=== PATIENT | male | born 1995 | race Hispanic/Latino ===

== ENCOUNTER → 2023-09-25 | Emergency (ER) | payer OTHER ==
[~2023-09-25] MED LIST: AMOX/K CLAV 875 MG TAB ONE; IBUPROFEN 200 MG TAB PO ONE; IBUPROFEN 400 MG TAB ONE
[2023-09-25 01:49] LABS: Protime INR 0.95
[2023-09-25 01:53] LABS: Absolute Eosinophils 0.1 K/uL (0-0.5); Absolute Lymphocytes (CBC) 2.2 K/uL (0.7-4.9); Basophils % 0.5 % (0-1.3); Eosinophils % 2.1 % (0-4.4); Hematocrit 39.9 % (39.6-49.0); Hemoglobin 13.5 g/dL (13.6-17.9); Lymphocytes % 30.6 % (15.3-44.8); MCV 90.1 fL (80-100); MPV 9.8 fL (7.6-11.3); Platelets 217 thou/uL (152-406); RBC Red Blood Cell Count 4.44 M/uL (4.33-5.43)
[2023-09-25 02:08] LABS: ALT/SGPT 21 U/L (16-61); AST/SGOT 17 U/L (15-37); Albumin 3.7 g/dL (3.4-5.0); Albumin/Globulin Ratio 1.2 (1.1-1.8); Alkaline Phosphatase 84 U/L (45-117); Anion Gap 6.9 mEq/L (5.0-15.0); BUN Blood Urea Nitrogen 14 mg/dL (7-18); Bicarbonate 31 mEq/L (21-32); Bilirubin Direct 0.1 mg/dL (0-0.2); Bilirubin Indirect, Calculated 0.1 mg/dL (0.2-0.8); Bilirubin Total 0.2 mg/dL (0.2-1.0); Globulin 3.2 g/dL (2.3-3.5); Glomerular Filtration Rate 64 ml/min (=/>90); Glucose Level 79 mg/dL (74-106); Potassium 3.9 mEq/L (3.5-5.1); Protein, Total 6.9 g/dL (6.4-8.2); Sodium Level 142 mEq/L (136-145)
[2023-09-25 03:49] LABS: Barbiturates NEGATIVE (NEGATIVE); Benzodiazepines NEGATIVE (NEGATIVE); Cocaine NEGATIVE (NEGATIVE); METHAMPHETAM POSITIVE (NEGATIVE); Methadone NEGATIVE (NEGATIVE); Opiates NEGATIVE (NEGATIVE); Phencyclidine NEGATIVE (NEGATIVE); THC Cannibis POSITIVE (NEGATIVE)
--- NOTE | 2023-09-25 04:12 | ER ---
Nurse's Notes [facility] Name: Maged Naik Jr Age: 28 yrs Sex: Male : 1995 Arrival Date: 09/25/2023 Time: 01:06 Bed 3 Private MD: Diagnosis: Dental pain;Amphetamine abuse;Cannabis abuse Presentation: 09/24 01:10 Chief complaint: EMS states: toned out for possible seizure; EMS found him km8 unresponsive, IV was started then pt was talking to him; white power found in pt's pocket and given to PD. Coronavirus screen: Client denies travel out of the [place] in the last 14 days. Ebola Screen: No symptoms or risks identified at this time. Initial Sepsis Screen: Does the patient meet any 2 criteria? HR > 90 bpm. Does the patient have a suspected source of infection? No. Patient's initial sepsis screen is negative. Risk Assessment: Do you want to hurt yourself or someone else? Patient reports no desire to harm self or others. Onset of symptoms was September 25, 2023. 01:10 Method Of Arrival: EMS: [facility] km8 01:10 Acuity: JOE 2 km8 01:10 Care prior to arrival: IV initiated. 18 GA, in the left antecubital area, Glucose km8 check: 77. Triage Assessment: 01:10 General: Appears in no apparent distress. comfortable, Behavior is calm, cooperative, km8 drowsy. Pain: Denies pain. EENT: No deficits noted. Neuro: Level of Consciousness is awake, alert, obeys commands, Oriented to person, place, time, situation. Cardiovascular: Denies chest pain, shortness of breath, Patient's skin is warm and dry. Respiratory: Airway is patent Respiratory effort is even, unlabored, Respiratory pattern is regular, symmetrical. GI: No signs and/or symptoms were reported involving the gastrointestinal system. : No signs and/or symptoms were reported regarding the genitourinary system. Derm: No signs and/or symptoms reported regarding the dermatologic system. Skin is intact, is healthy with good turgor, Skin is dry, Skin is pink, warm \T\ dry. normal, Skin temperature is warm. Musculoskeletal: No signs and/or symptoms reported regarding the musculoskeletal system. Range of motion: intact in all extremities. Historical: - Allergies: : No Known Allergies; km8 - Home Meds: : Unable to obtain [Active]; km8 - PMHx: : Unable to Obtain; km8 - PSHx: : Unable to Obtain; km8 - Immunization history:: Adult Immunizations unknown. - Social history:: Smoking status: unknown. Screenin:10 [facility] ED Fall Risk Assessment (Adult) History of falling in the last 3 months, km8 including since admission No falls in past 3 months (0 pts) Confusion or Disorientation Yes (5 pts) Intoxicated or Sedated Yes (3 pts) Impaired Gait No (0 pts) Mobility Assist Device Used No (0 pt) Altered Elimination No (0 pt) Score/Fall Risk Level 3 or more points = High Risk Oriented to surroundings, Maintained a safe environment, Educated pt \T\ family on fall prevention, incl call for assistance when getting out of bed, Assessed \T\ reinforced patient's understanding of fall precautions, Provided non-skid footwear, Hourly rounding (assess needs \T\ fall precautionary measures) done, Used ambulatory aids as needed (educated on \T\ assisted with), Implemented a Fall Risk Plan of Care, Remained w/in arm's length of patient and in sight while toileting, Remained with patient while ambulating. Abuse screen: Denies threats or abuse. Denies injuries from another. Nutritional screening: No deficits noted. Tuberculosis screening: No symptoms or risk factors identified. Assessment: :10 Reassessment: see triage assessment/notes. km8 02:02 Reassessment: Patient appears in no apparent distress at this time. No changes from km8 previously documented assessment. 03:26 Reassessment: Patient appears in no apparent distress at this time. No changes from km8 previously documented assessment. Patient and/or family updated on plan of care and expected duration. Pain level reassessed. Patient is alert, oriented x 3, equal unlabored respirations, skin warm/dry/pink. 03:26 General: Appears in no apparent distress. comfortable, Behavior is calm, cooperative, km8 appropriate for age. Neuro: Level of Consciousness is awake, alert, obeys commands, Oriented to person, place, time. 04:09 Reassessment: Patient appears in no apparent distress at this time. No changes from km8 previously documented assessment. Patient and/or family updated on plan of care and expected duration. Pain level reassessed. Patient is alert, oriented x 3, equal unlabored respirations, skin warm/dry/pink. Vital Signs: 01:10 BP 133 / 77; Pulse 90; Resp 16; Temp 97.9(TE); Pulse Ox 100% on R/A; Pain 0/10; km8 01:30 BP 121 / 63; Pulse 89; Resp 16; Pulse Ox 100% on R/A; km8 02:00 BP 108 / 38; Pulse 106; Resp 16; Pulse Ox 99% on R/A; km8 02:30 BP 92 / 47; Pulse 101; Resp 16; Pulse Ox 100% on R/A; km8 03:00 BP 101 / 62; Pulse 101; Resp 16; Pulse Ox 99% on R/A; km8 03:30 BP 109 / 57; Pulse 100; Resp 16; Pulse Ox 99% on R/A; km8 01:10 Pain Scale: Adult km8 Lakia Coma Score: 01:10 Eye Response: to voice(3). Motor Response: obeys commands(6). Verbal Response: km8 oriented(5). Total: 14. ED Course: 01:09 Patient arrived in ED. km8 01:10 Syed Benz DO is Attending Physician. ms3 01:10 Patient maintains SpO2 saturation greater than 95% on room air. km8 01:10 Arm band placed on right wrist. km8 01:10 Patient has correct armband on for positive identification. Bed in low position. Call km8 light in reach. Side rails up X2. Pulse ox on. NIBP on. Warm blanket given. 01:12 Katerina Winters, RN is Primary Nurse. km8 01:15 Triage completed. km8 01:22 Initial lab(s) drawn, by nd, sent to lab. km8 01:28 EKG done, by ED staff, reviewed by Syed Benz DO. km8 03:25 Urine Drug Screen Sent. km8 03:25 Urine collected: clean catch specimen, clear. km8 04:09 Provided Education on: d/c teaching. km8 04:10 Linden Murray DDS is Referral Physician. ms3 04:10 Kareem South DO is Referral Physician. ms3 04:10 No provider procedures requiring assistance completed. km8 04:19 IV discontinued, intact, bleeding controlled, No redness/swelling at site. Pressure km8 dressing applied. Administered Medications: 04:18 Drug: Ibuprofen PO 600 mg PO once Route: PO; km8 04:18 Follow up: Response: Medication administered at discharge. km8 04:18 Drug: Amoxicillin PO 875 mg PO once Route: PO; km8 04:18 Follow up: Response: Medication administered at discharge. km8 Medication: 04:09 VIS not applicable for this client. km8 Outcome: 04:11 Discharge ordered by MD. ms3 04:19 Discharged to home ambulatory, km8 04:19 Condition: good 04:19 Discharge instructions given to patient, Instructed on discharge instructions, follow up and referral plans. medication usage, Demonstrated understanding of instructions, follow-up care, medications, Prescriptions given X 2, 04:21 Patient left the ED. km8 Signatures: Syed Benz DO DO ms3 Katerina Winters RN RN km8 Corrections: (The following items were deleted from the chart) 04:09 03:26 Reassessment: Patient appears in no apparent distress at this time. No changes km8 from previously documented assessment. Patient and/or family updated on plan of care and expected duration. Pain level reassessed. Patient is alert, oriented x 3, equal unlabored respirations, skin warm/dry/pink. km8
--- NOTE | 2023-09-25 04:12 | EDPHYS ---
Physician Documentation [facility] Name: Maged Naik Jr Age: 28 yrs Sex: Male : 1995 Arrival Date: 09/25/2023 Time: 01:06 Bed 3 Private MD: ED Physician Syed Benz HPI: 09/24 01:37 This 28 yrs old Male presents to ER via EMS with complaints of Possible Overdose. ms3 01:37 28-year-old male with unknown past medical history presents via [facility] for ms3 altered mental status. EMS states they returned down to an unresponsive patient. On their arrival patient was unresponsive with shallow breathing. EMS notes white crystals were found in patient's pocket. Per EMS patient was alert and oriented x 3. Patient is without complaint. Patient states he is tired. Historical: - Allergies: :23 No Known Allergies; km8 - Home Meds: :23 Unable to obtain [Active]; km8 - PMHx: : Unable to Obtain; km8 - PSHx: :23 Unable to Obtain; km8 - Immunization history:: Adult Immunizations unknown. - Social history:: Smoking status: unknown. ROS: 01:37 Constitutional: Negative for fever, and chills. Neck: Negative for injury, pain, and ms3 swelling, Cardiovascular: Negative for chest pain, and palpitations. Respiratory: Negative for shortness of breath, cough, wheezing, and pleuritic chest pain, Abdomen/GI: Negative for abdominal pain, nausea, vomiting, diarrhea, and constipation, MS/Extremity: Negative for injury and deformity, Skin: Negative for injury, rash, and discoloration, Exam: 01:37 Constitutional: This is a well developed, well nourished patient who is awake, alert, ms3 and in no acute distress. Head/Face: Normocephalic, atraumatic. Chest/axilla: Normal chest wall appearance and motion. Nontender with no deformity. Cardiovascular: Regular rate and rhythm with a normal S1 and S2. No gallops, murmurs, or rubs. Normal PMI, no JVD. No pulse deficits. Respiratory: Lungs have equal breath sounds bilaterally, clear to auscultation and percussion. No rales, rhonchi or wheezes noted. No increased work of breathing, no retractions or nasal flaring. Abdomen/GI: Soft, non-tender, with normal bowel sounds. No distension or tympany. No guarding or rebound. No evidence of tenderness throughout. Skin: Warm, dry with normal turgor. Normal color with no rashes, no lesions, and no evidence of cellulitis. MS/ Extremity: Pulses equal, no cyanosis. Neurovascular intact. Full, normal range of motion. 01:37 Neuro: Orientation: is normal, to person, place, time \T\ situation. Mentation: is ms3 normal, Memory: is normal, Cranial nerves: CN I not tested, CN II- XII are normal as tested, Cerebellar function: is grossly normal, Patient slow to answer questions, 02:04 ECG was reviewed by the Attending Physician. ms3 Vital Signs: 01:10 BP 133 / 77; Pulse 90; Resp 16; Temp 97.9(TE); Pulse Ox 100% on R/A; Pain 0/10; km8 01:30 BP 121 / 63; Pulse 89; Resp 16; Pulse Ox 100% on R/A; km8 02:00 BP 108 / 38; Pulse 106; Resp 16; Pulse Ox 99% on R/A; km8 02:30 BP 92 / 47; Pulse 101; Resp 16; Pulse Ox 100% on R/A; km8 03:00 BP 101 / 62; Pulse 101; Resp 16; Pulse Ox 99% on R/A; km8 03:30 BP 109 / 57; Pulse 100; Resp 16; Pulse Ox 99% on R/A; km8 01:10 Pain Scale: Adult km8 Lakia Coma Score: 01:10 Eye Response: to voice(3). Motor Response: obeys commands(6). Verbal Response: km8 oriented(5). Total: 14. MDM: 01:11 Patient medically screened. ms3 01:37 Differential diagnosis: Ingestion/exposure to Unknown substance over medication, ms3 Electrolyte abnormality. 04:11 Data reviewed: vital signs, nurses notes, lab test result(s), and as a result, I will ms3 discharge patient. I considered the following discharge prescriptions or medication management in the emergency department Medications were administered in the Emergency Department. See MAR. Counseling: I had a detailed discussion with the patient and/or guardian regarding the historical points, exam findings, and any diagnostic results supporting the discharge/admit diagnosis, lab results, the need for outpatient follow up, to return to the emergency department if symptoms worsen or persist or if there are any questions or concerns that arise at home. Special discussion: I discussed with the patient/guardian in detail that at this point there is no indication for admission to the hospital. It is understood, however, that if the symptoms persist or worsen the patient needs to return immediately for re-evaluation. ED course: On discharge patient complaining of right upper dental pain. On exam patient with poor dentition and erosion of tooth #4. Patient given ibuprofen and amoxicillin in the emergency department. Patient given prescription for ibuprofen and penicillin. Patient to follow-up with Dr. Yost or for dental pain. Patient to follow-up with Dr. South for reevaluation in 2 to 3 days. Patient understands and agrees with plan. All questions were answered. Return precautions discussed include worsening symptoms, or any other concerns. 09/24 01:10 Order name: Acetaminophen; Complete Time: 02:43 ms3 09/24 01:10 Order name: BMP; Complete Time: 02:43 ms3 09/24 01:10 Order name: CBC with Diff; Complete Time: 02:43 ms3 09/24 01:10 Order name: Ethanol; Complete Time: 02:43 ms3 09/24 01:10 Order name: Hepatic Function; Complete Time: 02:43 ms3 09/24 01:10 Order name: Protime (+inr); Complete Time: 02:43 ms3 09/24 01:10 Order name: Ptt, Activated; Complete Time: 02:43 ms3 09/24 01:10 Order name: Salicylate; Complete Time: 02:43 ms3 09/24 01:10 Order name: Urine Drug Screen; Complete Time: 04:06 ms3 09/24 01:10 Order name: EKG; Complete Time: :11 ms3 09/24 01:10 Order name: EKG - Nurse/Tech; Complete Time: 01:28 ms3 09/24 01:10 Order name: IV Saline Lock; Complete Time: :15 ms3 09/24 01:10 Order name: Labs collected and sent; Complete Time: 01:22 ms3 09/24 01:10 Order name: O2 Per Protocol; Complete Time: :15 ms3 09/24 01:10 Order name: O2 Sat Monitoring; Complete Time: 01:15 ms3 03 01:10 Order name: Suicide Screening ([place]); Complete Time: 01:22 ms3 EC:04 Rate is 84 beats/min. Rhythm is regular. QRS [place] is Normal. UT interval is normal. QRS ms3 interval is normal. QT interval is normal. Clinical impression: Normal ECG. Interpreted by me. Reviewed by me. Administered Medications: 04:18 Drug: Ibuprofen PO 600 mg PO once Route: PO; km8 04:18 Follow up: Response: Medication administered at discharge. km8 04:18 Drug: Amoxicillin PO 875 mg PO once Route: PO; km8 04:18 Follow up: Response: Medication administered at discharge. km8 Disposition Summary: 09/25/23 04:11 Discharge Ordered Notes: Location: Home ms3 Condition: Stable ms3 Diagnosis - Dental pain ms3 - Amphetamine abuse ms3 - Cannabis abuse ms3 Followup: ms3 - With: Linden Murray DDS - When: 2 - 3 days - Reason: Recheck today's complaints Followup: ms3 - With: Kareem South DO - When: 2 - 3 days - Reason: Recheck today's complaints Discharge Instructions: - Discharge Summary Sheet ms3 - Dental Pain ms3 - Illegal Drug Use Information, Adult ms3 Forms: - Medication Reconciliation Form ms3 - Thank You Letter ms3 - Antibiotic Education ms3 - Prescription Opioid Use ms3 - Patient Portal Instructions ms3 - Leadership Thank You Letter ms3 Prescriptions: - penicillin V potassium 500 mg Oral tablet - take 1 tablet ORAL route 4 times per day for 7 days; 28 tablet; Refills: 0, ms3 Product Selection Permitted - Ibuprofen 600 mg Oral Tablet - take 1 tablet ORAL route every 6 hours As needed take with food; 30 tablet; ms3 Refills: 0, Product Selection Permitted Signatures: Dispatcher [employer] EDSyed Portillo DO DO ms3 Katerina Winters, RN RN km8
[2023-09-25 04:43] VITALS: BP 109/57; TEMP 97.9; O2SAT 99
== END ==
LOC: ER 01:06
DX: F15.10 Other stimulant abuse, uncomplicated (principal); F12.10 Cannabis abuse, uncomplicated; K08.89 Other specified disorders of teeth and supporting structures
CPT/HCPCS: 36415; 80048; 80076; 80143; 80179; 80307; 82077; 85025; 85610; 85730; 99285

== ENCOUNTER 2024-10-28 18:06 | Emergency (ER) | payer OTHER ==
--- NOTE | 2024-10-28 18:39 | EDPHYS ---
Physician Documentation [facility] Name: Maged Naik Jr Age: 29 yrs Sex: Male : 1995 Arrival Date: 10/28/2024 Time: 18:06 Bed 5 Private MD: ED Physician Umesh Bravo HPI: 10/28 18:44 This 29 yrs old Male presents to ER via Ambulatory with complaints of Psych sb4 Problem. 18:45 Patient has been off of his psych meds for quite some time now. He has a history of sb4 schizoaffective disorder, is post to be on Depakote and Seroquel. His family called the mental health deputy for assistance a few weeks ago which resulted in him being taken to residential for violent behavior. He followed up with [facility] today and was told they could not start him on medication for a few days. States that he does not have any thoughts of hurting himself but does feel like he wants to "beat someone up". Historical: - Allergies: 18:32 No Known Allergies; cm10 - Home Meds: 18:32 Depakote ER 500 mg Oral Tablet, Extended Release 24 hr 2 tabs daily [Active]; Seroquel cm10 100 mg Oral tablet 1 tab Morning [Active]; Seroquel 300 mg Oral tablet 1 tab every day at bedtime [Active]; - PMHx: 18:32 Schizoaffective Disorder, Bipolar type; Personality Disorder; Intermittent explosive cm10 disorder; - Immunization history:: Adult Immunizations unknown. - Infectious Disease History:: Denies. - Social history:: Smoking status: Patient reports the use of cigarette tobacco products, unknown amount. ROS: 18:45 Constitutional: Negative for fever, chills, and weight loss, sb4 18:45 Psych: Positive for Negative for homicidal ideation, suicide gesture, suicidal ideation, 18:45 All other systems are negative, Exam: 18:47 Constitutional: This is a well developed, well nourished patient who is awake, alert, sb4 and in no acute distress. Head/Face: Normocephalic, atraumatic. Eyes: Extra-ocular motions intact. Periorbital areas with no swelling, redness, or edema. ENT: Mucous membranes moist. Respiratory: No increased work of breathing, no retractions or nasal flaring. Skin: Warm, dry with normal turgor. Normal color with no rashes, no lesions, and no evidence of cellulitis. Psych: Awake, alert, with orientation to person, place and time. Behavior, mood, and affect are within normal limits. Vital Signs: 18:34 BP 158 / 99; Pulse 118; Resp 15; Temp 98.5; Pulse Ox 99% on R/A; Weight 64.41 kg; cm10 Height 5 ft. 7 in. ; Pain 0/10; 20:43 BP 141 / 79; Pulse 98; Resp 16; Pulse Ox 98% on R/A; kd3 18:34 Body Mass Index 22.24 (64.41 kg, 170.18 cm) cm10 18:34 Pain Scale: Adult cm10 MDM: 18:10 Medical Screening Exam initiated sb4 19:40 ED course: Patient states if he goes home, he will get into a violent altercation with sb4 his brother, who will call the police on him, and he will go back to residential. Patient states that he has no control over his explosive behavior and states that when he gets into these episodes, he blacks out and has no recollection. He states that he has no other place to go and does not feel safe going home. Given his extensive psychiatric history and not being on his medications, will attempt transfer for inpatient psychiatric treatment. Patient is in agreement with plan and will be a voluntary commitment. 19:41 Data reviewed: vital signs, nurses notes. Counseling: I had a detailed discussion with sb4 the patient and/or guardian regarding the historical points, exam findings, and any diagnostic results supporting the discharge/admit diagnosis, the need to transfer to another facility, [facility] does not immediately have the required specialist. Administered Medications: 18:55 Drug: Diazepam PO 10 mg PO once Route: PO; iw 20:46 Follow up: Response: No adverse reaction; Anxiety decreased kd3 Disposition: 10/29 08:58 Co-signature as Attending Physician, Umesh Bravo MD I reviewed the patient's care rt provided by the Advanced Practice Provider and agree with the diagnosis and treatment plan. Disposition Summary: 10/28/24 19:40 Transfer Ordered Notes: Transfer Location: Psych Facility sb4 Reason: Higher level of care sb4 Condition: Fair(10/28/24 19:40) sb4 Problem: an ongoing problem(10/28/24 19:40) sb4 Symptoms: are unchanged(10/28/24 19:40) sb4 Accepting Physician: psych(10/28/24 20:48) kd3 Diagnosis - Schizoaffective disorder, bipolar type(10/28/24 19:40) sb4 - Intermittent explosive disorder sb4 Discharge Instructions: - Discharge Summary Sheet kmf Forms: - Medication Reconciliation Form sb4 - SBAR form kmf Signatures: Georgia Reynoso RN RN iw Laury Prater RN RN kd3 Madelyn Grier PA-C PA-C sb4 Umesh Bravo MD MD rt Miracle Walker RN RN cm10 Corrections: (The following items were deleted from the chart) 10/28 18:43 18:38 Home sb4 sb4 18:43 18:38 an ongoing problem sb4 sb4 18:43 18:38 have improved sb4 sb4 18:43 18:38 Stable sb4 sb4 18:43 18:38 Schizoaffective disorder, bipolar type sb4 sb4 20:48 19:40 psych sb4 kd3
--- NOTE | 2024-10-28 18:39 | ER ---
Nurse's Notes [facility] Name: Maged Naik Jr Age: 29 yrs Sex: Male : 1995 Arrival Date: 10/28/2024 Time: 18:06 Bed 5 Private MD: Diagnosis: Schizoaffective disorder, bipolar type;Intermittent explosive disorder Presentation: 10/28 18:30 Chief complaint: Here because "people are asking me stupid ass question and I don't cm10 want to beat the shit out of them. I have been out of my meds for a while." Pt denies any SI. 18:34 Coronavirus screen: Client denies travel out of the [place] in the last 14 days. Ebola cm10 Screen: Patient denies travel to an Ebola-affected area in the 21 days before illness onset. Initial Sepsis Screen: Does the patient meet any 2 criteria? HR > 90 bpm. Does the patient have a suspected source of infection? No. Patient's initial sepsis screen is negative. Risk Assessment: Do you want to hurt yourself or someone else? Patient reports desire/thoughts of hurting themselves or someone else. Provider notified. Other: Pt states that he wants to beat up one of his family members. Onset of symptoms was October 28, 2024. 18:34 Method Of Arrival: Ambulatory cm10 18:34 Acuity: JOE 2 cm10 Triage Assessment: 18:41 General: Appears in no apparent distress. comfortable, Behavior is calm, cooperative. cm10 Pain: Denies pain. Neuro: No deficits noted. Level of Consciousness is awake, alert, obeys commands, Oriented to person, place, time, situation, Appropriate for age. Respiratory: No deficits noted. Airway is patent Respiratory effort is even, unlabored, Respiratory pattern is regular, symmetrical. Historical: - Allergies: 18:32 No Known Allergies; cm10 - Home Meds: 18:32 Depakote ER 500 mg Oral Tablet, Extended Release 24 hr 2 tabs daily [Active]; Seroquel cm10 100 mg Oral tablet 1 tab Morning [Active]; Seroquel 300 mg Oral tablet 1 tab every day at bedtime [Active]; - PMHx: 18:32 Schizoaffective Disorder, Bipolar type; Personality Disorder; Intermittent explosive cm10 disorder; - Immunization history:: Adult Immunizations unknown. - Infectious Disease History:: Denies. - Social history:: Smoking status: Patient reports the use of cigarette tobacco products, unknown amount. Screenin:21 [facility] ED Fall Risk Assessment (Adult) History of falling in the last 3 months, kd3 including since admission No falls in past 3 months (0 pts) Confusion or Disorientation No (0 pts) Intoxicated or Sedated No (0 pts) Impaired Gait No (0 pts) Mobility Assist Device Used No (0 pt) Altered Elimination No (0 pt) Score/Fall Risk Level 0 - 2 = Low Risk Oriented to surroundings. Abuse screen: Denies threats or abuse. Denies injuries from another. Nutritional screening: No deficits noted. Tuberculosis screening: No symptoms or risk factors identified. Assessment: 19:19 General: Appears in no apparent distress. Behavior is anxious, crying. General: Pt seen kd3 in resting in the stretcher, Pt appears tearful. Pt does not want to express feeling at this time. Pt offered a warm blanket. Pt declines any needs at this time. . Neuro: Level of Consciousness is awake, alert, obeys commands, Oriented to person, place, time, situation. Cardiovascular: Patient's skin is warm and dry. Respiratory: Airway is patent Trachea midline Respiratory effort is even, unlabored, Respiratory pattern is regular, symmetrical. 20:44 General: Pt denies SI. . kd3 Psych: 20:44 [place] Suicide Severity Screening: "In your lifetime, have you ever done anything, kd3 started to do anything, or prepared to do anything to end your life?". Vital Signs: 18:34 BP 158 / 99; Pulse 118; Resp 15; Temp 98.5; Pulse Ox 99% on R/A; Weight 64.41 kg; cm10 Height 5 ft. 7 in. ; Pain 0/10; 20:43 BP 141 / 79; Pulse 98; Resp 16; Pulse Ox 98% on R/A; kd3 18:34 Body Mass Index 22.24 (64.41 kg, 170.18 cm) cm10 18:34 Pain Scale: Adult cm10 ED Course: 18:08 Patient arrived in ED. al6 18:10 Madelyn Grier PA-C is PHCP. sb4 18:10 Umesh Bravo MD is Attending Physician. sb4 18:38 Mohamud Childs MD is Referral Physician. sb4 18:40 Triage completed. cm10 18:40 Arm band placed on right wrist. Patient placed in waiting room. cm10 19:16 Laury Prater, RN is Primary Nurse. kd3 19:21 Patient has correct armband on for positive identification. Provided Education on:. kd3 19:45 FAXED PT CLINICAL'S TO [facility], [facility], [facility], [facility], AND [facility] 19:59 PT WAS ACCEPTED TO [facility]T\\ [address]. [address] DR CHIN. ADMIN APPROVAL [facility] ARNULFO SINGH. [facility] TO TRANSFER PT. 20:44 No provider procedures requiring assistance completed. Patient did not have IV access kd3 during this emergency room visit. Administered Medications: 18:55 Drug: Diazepam PO 10 mg PO once Route: PO; iw 20:46 Follow up: Response: No adverse reaction; Anxiety decreased kd3 Medication: 20:45 VIS not applicable for this client. kd3 Outcome: 18:38 Discharge ordered by MD. sb4 19:40 ER care complete, transfer ordered by MD. sb4 20:44 Condition: stable kd3 20:45 Transferred by ground EMS Note: Behavior cassie kd3 20:45 Discharge instructions given to patient, Instructed on the need for transfer, 20:48 Patient left the ED. kd3 Signatures: Georgia Reynoso, RN RN iw Laury Prater, RN RN kd3 Madelyn Grier, PASaraiC PAEthel sb4 Miracle Walker RN RN cm10 Vernell Lugo [facility] Ena Dennis Corrections: (The following items were deleted from the chart) 18:40 18:30 Chief complaint: Here because "people are asking me stupid ass question and I cm10 don't want to beat the shit out of them. I have been out of my meds for a while." cm10 18:41 18:40 Arm band placed on right wrist. Patient placed in an exam room, on a stretcher, cm10 cm10 18:45 18:34 Risk Assessment: Do you want to hurt yourself or someone else? Patient reports no cm10 desire to harm self or others. cm10 18:45 18:34 Acuity: JOE 3 cm10 cm10
[2024-10-28] MEDS ORDERED: DIAZEPAM 5 MG TABLET ONE (18:50)
[2024-10-28 20:55] VITALS: TEMP 98.5
[2024-10-28 20:56] VITALS: BP 141/79; O2SAT 98
== END 2024-10-28 20:48 ==
LOC: ER 18:06
DX: F25.0 Schizoaffective disorder, bipolar type (principal); F63.81 Intermittent explosive disorder; Z72.0 Tobacco use
CPT/HCPCS: 99285